=== PATIENT | male | born 1945 | race Caucasian/White ===

== ENCOUNTER 2021-11-29 14:53 | Outpatient (CLI) | payer BC ==
[~2021-11-29 14:53] MED LIST: Magnevist 469MG/ML 20 ML VIAL ONE
== END 2021-11-29 14:54 | disposition home or self-care (01) ==
LOC: CSHMRI 14:53
PROVIDERS: ATTEND Urology
DX: N40.2 Nodular prostate without lower urinary tract symptoms (principal)
CPT/HCPCS: 72197; 82565